=== PATIENT | female | born 1980 | race Caucasian/White ===

== ENCOUNTER 2020-03-26 15:37 | Emergency (ER) | payer MEDICAID ==
[~2020-03-26] VITALS: Ht 165.1 cm; Wt 54.4 kg
== END 2020-03-26 18:30 | disposition home or self-care (01) ==
LOC: ED 15:37
DX: N83.201 Unspecified ovarian cyst, right side (principal); Z88.2 Allergy status to sulfonamides; Z88.8 Allergy status to other drugs, medicaments and biological substances; Z88.0 Allergy status to penicillin
CPT/HCPCS: 76830; 76856; 80053; 81001; 84703; 85025; 99284-25

== ENCOUNTER 2020-03-29 10:39 | Emergency (ER) | payer MEDICAID ==
[~2020-03-29] VITALS: Ht 165.1 cm; Wt 54.4 kg
--- OUTSIDE RECORDS SUMMARY | 2020-03-29 10:42 | XMS ---
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 Kayy VISIT COUNT (12 MO.) 1 Ortega Beck 2 [facility] Luis TOTAL 3 NOTE: Visits indicate total known visits. ED/UCC VISIT TRACKING (12 MO.) 03/29/2020 10:40 [facility] [place] TYPE: Emergency COMPLAINT: - ABD PAIN 03/26/2020 15:38 [facility] [place] TYPE: Emergency COMPLAINT: - FLANK/BACK PAIN DIAGNOSES: - Unspecified ovarian cyst, right side - Allergy status to other drugs, medicaments and biological sub - Allergy status to sulfonamides status - Unspecified abdominal pain - Allergy status to penicillin 01/20/2020 19:35 Ortega MARQUES TYPE: Emergency DIAGNOSES: - Other stimulant abuse, uncomplicated - Other symptoms and signs involving appearance and behavior - Acute cystitis without hematuria INPATIENT VISIT TRACKING (12 MO.) No inpatient visits to display in this time frame [email or web address]
[2020-03-29] MEDS ORDERED: DIVALPROEX SOD500 MG PO (11:10)
[2020-03-29] MEDS ORDERED: SERTRALINE HCL25 MG PO (11:10)
[2020-03-29] MEDS ORDERED: PRAZOSIN HCL1 MG PO (11:10)
== END 2020-03-29 14:32 | disposition home or self-care (01) ==
LOC: ED 10:39
DX: N83.201 Unspecified ovarian cyst, right side (principal); N83.202 Unspecified ovarian cyst, left side; Z87.891 Personal history of nicotine dependence; Z88.2 Allergy status to sulfonamides; Z88.1 Allergy status to other antibiotic agents; Z88.8 Allergy status to other drugs, medicaments and biological substances; Z79.899 Other long term (current) drug therapy
CPT/HCPCS: 80053; 81001; 83690; 84703; 85025; 96374; 99284-25; J1885